=== PATIENT | female | born 1960 | race Caucasian/White ===

== ENCOUNTER 2018-01-02 10:48 | Outpatient (CLI) | payer OTHER ==
[~2018-01-02 10:48] MED LIST: CALC-787 PO; CHRO1TAB7 PO; CIME200T95; DOCU-169 PO; LYSI500T3 PO; MULT-1179 PO; NAPR220T67 PO; OLIV250C PO; POTA2TAB17 PO; RED600TA PO; SINUS PO; [UNRECOGNIZED DRUG - OTHER] PO
[2018-01-03] MEDS ORDERED: iohexol 300 MG/1 ML 10ml vial ONE (12:09)
== END 2018-01-02 23:59 | disposition home or self-care (01) ==
LOC: RAD 10:48
PROVIDERS: ATTEND Family Medicine
DX: M48.02 Spinal stenosis, cervical region (principal); M47.812 Spondylosis without myelopathy or radiculopathy, cervical region; M43.22 Fusion of spine, cervical region; F17.200 Nicotine dependence, unspecified, uncomplicated; Z90.710 Acquired absence of both cervix and uterus
CPT/HCPCS: 72141; Q9967

== ENCOUNTER 2018-04-02 08:32 | Day surgery (SDC) | payer OTHER ==
[~2018-04-02] VITALS: Ht 172.7 cm; Wt 77.3 kg
[2018-04-02 08:37] VITALS: BP 128/84
[2018-04-02] MEDS ORDERED: fentaNYL/PF 50MCG/1 ML 2ML syringe ONE (08:43)
[2018-04-02] MEDS ORDERED: MIDAZolam 5mg/5ml vial ONE (08:43)
[2018-04-02 10:20] VITALS: BP 107/69
[2018-04-02 10:30] VITALS: BP 117/77
[2018-04-02 10:40] VITALS: BP 118/61
[2018-04-02 10:50] VITALS: BP 122/76
== END 2018-04-02 10:55 | disposition home or self-care (01) ==
LOC: GI LAB 08:32
PROVIDERS: ATTEND Internal Medicine Gastroenterology
DX: Z12.11 Encounter for screening for malignant neoplasm of colon (principal); D12.5 Benign neoplasm of sigmoid colon; K58.9 Irritable bowel syndrome, unspecified; F17.210 Nicotine dependence, cigarettes, uncomplicated; Z86.010 Personal history of colon polyps; Z72.89 Other problems related to lifestyle; Z90.710 Acquired absence of both cervix and uterus; Z87.448 Personal history of other diseases of urinary system; Z87.39 Personal history of other diseases of the musculoskeletal system and connective tissue; Z88.2 Allergy status to sulfonamides; Z79.899 Other long term (current) drug therapy; Z98.890 Other specified postprocedural states; Z82.49 Family history of ischemic heart disease and other diseases of the circulatory system
CPT/HCPCS: 45380; 99152; 99153; J2250; J3010; J7030; A4620

== ENCOUNTER 2019-11-11 13:24 | Outpatient (CLI) | payer BC ==
[~2019-11-11 13:24] MED LIST changes: -CALC-787 PO; -CHRO1TAB7 PO; -DOCU-169 PO; -LYSI500T3 PO; -OLIV250C PO; -POTA2TAB17 PO; -RED600TA PO; -SINUS PO; -[UNRECOGNIZED DRUG - OTHER] PO
== END 2019-11-11 23:59 | disposition home or self-care (01) ==
LOC: RAD 13:24
PROVIDERS: ATTEND Family Medicine
DX: R91.1 Solitary pulmonary nodule (principal); R07.81 Pleurodynia; M47.814 Spondylosis without myelopathy or radiculopathy, thoracic region
CPT/HCPCS: 71101; 71250

== ENCOUNTER 2020-11-28 08:40 | Outpatient (CLI) | payer BC ==
[2020-11-28 09:36] LABS: BASOPHILS % (AUTO) 0.7 % (0-1); EOSINOPHILS # (AUTO) 0.2 X10'3 (0-0.9); EOSINOPHILS % (AUTO) 2.6 % (0-6); HEMATOCRIT 45.6 % (35.0-45.0); HEMOGLOBIN 15.1 g/dl (12.0-16.0); LYMPHOCYTES # (AUTO) 2.5 X10'3 (1.1-4.8); LYMPHOCYTES % (AUTO) 36.3 % (21-51); MEAN CORPUSCULAR HEMOGLOBIN 31.3 PG (27.0-31.0); MEAN CORPUSCULAR HGB CONC 33.2 g/dL (33.0-36.5); MEAN PLATELET VOLUME 9.5 FL (7.4-10.4); MONOCYTES # (AUTO) 0.6 X10'3 (0-0.9); MONOCYTES % (AUTO) 8.3 % (2-12); NEUTROPHILS # (AUTO) 3.6 X10'3 (1.8-7.7); NEUTROPHILS % (AUTO) 52.1 % (42-75); PLATELET COUNT 245 X10'3 (140-440); RED BLOOD COUNT 4.85 X10'6 (4.20-5.60); RED CELL DISTRIBUTION WIDTH 13.2 % (11.5-14.5); WHITE BLOOD COUNT 6.9 X10'3 (4.5-11.0)
[2020-11-28 09:53] LABS: CLARITY,URINE SLIGHTLY CLOUDY (Clear); COLOR,URINE YELLOW (Yellow); UA COLLECTION TYPE CLN CATCH MIDSTREAM
[2020-11-28 09:54] LABS: GLUCOSE, URINE NEGATIVE (Neg); KETONES,URINE NEGATIVE (Neg); LEUKOCYTE ESTERASE ,URINE NEGATIVE (Neg); NITRITES, URINE NEGATIVE (Neg); OCCULT BLOOD,URINE NEGATIVE (Neg); PROTEIN,URINE NEGATIVE (Neg); UROBILINOGEN,URINE 0.2 E.U/dL (0.2-1.0)
[2020-11-28 09:56] LABS: SQUAMOUS EPITHELIAL CELL,UR FEW /LPF (FEW)
[2020-11-28 09:57] LABS: MUCUS STRANDS MODERATE /LPF (Neg)
[2020-11-28 09:58] LABS: BACTERIA,URINE NONE SEEN /HPF (Neg); RBC,URINE 0-2 /HPF (0-2); WBC,URINE 0-4 /HPF (0-4)
[2020-11-28 10:08] LABS: ALANINE AMINOTRANSFERASE 28 U/L (12-78); ALBUMIN 3.9 G/DL (3.4-5.0); ALKALINE PHOSPHATASE 76 IU/L (46-116); ANION GAP 13 (8-16); ASPARTATE AMINO TRANSFERASE 24 U/L (10-37); BILIRUBIN,TOTAL 0.4 MG/DL (0.1-1.0); BLOOD UREA NITROGEN 12 MG/DL (7-18); BUN/CREATININE RATIO 14.3 (6.6-38.0); CALCIUM 8.8 MG/DL (8.5-10.1); CHLORIDE 102 MMOL/L (99-107); CHOL/HDL RATIO 4.2 (0.00-4.99); CHOLESTEROL 246 MG/DL (0-200); CREATININE 0.84 MG/DL (0.40-0.90); GLUCOSE 112 MG/DL (70-104); HDL CHOLESTEROL 59 MG/DL (35-60); LDL CHOLESTEROL 148 MG/DL (50-100); POTASSIUM 3.9 MMOL/L (3.5-5.1); SODIUM 139 MMOL/L (135-145); TOTAL PROTEIN 7.9 G/DL (6.4-8.2); TRIGLYCERIDES 143 MG/DL (20-135); eGFR 70 ML/MIN
== END 2020-11-28 23:59 | disposition home or self-care (01) ==
LOC: LAB 08:40
PROVIDERS: ATTEND Family Medicine
DX: Z00.01 Encounter for general adult medical examination with abnormal findings (principal)
CPT/HCPCS: 36415; 80053; 80061; 81001; 84439; 84443; 85025

== ENCOUNTER → 2021-03-14 | Outpatient (CLI) | payer BC | END | disposition home or self-care (01) | LOC: RAD 13:34 | PROVIDERS: ATTEND Anesthesiology | DX: Z01.818 Encounter for other preprocedural examination (principal); G89.4 Chronic pain syndrome | CPT/HCPCS: 72141 ==

== ENCOUNTER 2021-10-15 10:05 | Emergency (ER) | payer BC ==
[~2021-10-15] VITALS: Ht 172.7 cm; Wt 77.0 kg
[~2021-10-15 10:05] MED LIST changes: +HYDR-3972 PO; +ORPH100T2 PO
[2021-10-15 12:28] VITALS: BP 118/80
[2021-10-15] MEDS ORDERED: dexamethasone sod phosphate 10mg/ml inj IM STA (13:38)
[2021-10-15] MEDS ORDERED: orphenadrine citrate 60mg/2ml inj. IM ONE (13:40)
[2021-10-15] MEDS ORDERED: DEC4T PO (13:40)
[2021-10-15] MEDS ORDERED: ORPH100T2 PO (13:40)
== END 2021-10-15 13:51 | disposition home or self-care (01) ==
LOC: EEVIPCON 10:05 → ER 10:05
DX: M54.16 Radiculopathy, lumbar region (principal); Z88.2 Allergy status to sulfonamides; Z79.899 Other long term (current) drug therapy
CPT/HCPCS: 72148; 96372; 99284; J1100; J2360

== ENCOUNTER 2021-10-18 09:42 | Emergency (ER) | payer BC ==
[~2021-10-18] VITALS: Ht 172.7 cm; Wt 90.9 kg
[~2021-10-18 09:42] MED LIST changes: +DEC4T PO
[2021-10-18 11:03] LABS: BASOPHILS % (AUTO) 0.4 % (0-1); EOSINOPHILS % (AUTO) 0.4 % (0-6); HEMATOCRIT 45.2 % (35.0-45.0); HEMOGLOBIN 15.3 g/dl (12.0-16.0); LYMPHOCYTES # (AUTO) 1.8 X10'3 (1.1-4.8); LYMPHOCYTES % (AUTO) 16.9 % (21-51); MEAN CORPUSCULAR HGB CONC 33.9 g/dL (33.0-36.5); MEAN CORPUSCULAR VOLUME 94.5 FL (78-98); MEAN PLATELET VOLUME 8.7 FL (7.4-10.4); MONOCYTES # (AUTO) 0.6 X10'3 (0-0.9); MONOCYTES % (AUTO) 5.5 % (2-12); NEUTROPHILS # (AUTO) 8.3 X10'3 (1.8-7.7); NEUTROPHILS % (AUTO) 76.8 % (42-75); PLATELET COUNT 232 X10'3 (140-440); RED BLOOD COUNT 4.78 X10'6 (4.20-5.60); RED CELL DISTRIBUTION WIDTH 13.4 % (11.5-14.5); WHITE BLOOD COUNT 10.8 X10'3 (4.5-11.0)
[2021-10-18 11:06] LABS: CLARITY,URINE CLEAR (Clear); COLOR,URINE YELLOW (Yellow); GLUCOSE, URINE NEGATIVE (Neg); KETONES,URINE NEGATIVE (Neg); LEUKOCYTE ESTERASE ,URINE SMALL (Neg); NITRITES, URINE NEGATIVE (Neg); OCCULT BLOOD,URINE NEGATIVE (Neg); PROTEIN,URINE NEGATIVE (Neg); UROBILINOGEN,URINE 0.2 E.U/dL (0.2-1.0)
[2021-10-18 11:17] LABS: UA COLLECTION TYPE NON-SPECIFIED
[2021-10-18 11:24] LABS: ALANINE AMINOTRANSFERASE 21 U/L (12-78); ALKALINE PHOSPHATASE 60 IU/L (46-116); ANION GAP 11 (8-16); ASPARTATE AMINO TRANSFERASE 20 U/L (10-37); BILIRUBIN,TOTAL 0.3 MG/DL (0.1-1.0); BLOOD UREA NITROGEN 10 MG/DL (7-18); BUN/CREATININE RATIO 12.3 (6.6-38.0); CALCIUM 9.2 MG/DL (8.5-10.1); CHLORIDE 99 MMOL/L (99-107); CREATININE 0.81 MG/DL (0.40-0.90); GLUCOSE 118 MG/DL (70-104); SODIUM 135 MMOL/L (135-145); TOTAL PROTEIN 7.9 G/DL (6.4-8.2); eGFR 72 ML/MIN
[2021-10-18 11:34] LABS: POTASSIUM 3.9 MMOL/L (3.5-5.1)
[2021-10-18 11:52] LABS: WBC CLUMPS,URINE FEW /HPF (NEGATIVE)
[2021-10-18 11:53] LABS: BACTERIA,URINE FEW /HPF (Neg); RBC,URINE NONE SEEN /HPF (0-2); SQUAMOUS EPITHELIAL CELL,UR FEW /LPF (FEW)
[2021-10-18] MEDS ORDERED: lisinopril 10 MG tablet PO ONE (12:25)
[2021-10-18] MEDS ORDERED: LISI20TA28 PO (17:00)
[2021-10-18 17:33] VITALS: BP 126/92
== END 2021-10-18 17:35 | disposition home or self-care (01) ==
LOC: ER 09:43 → EEVIPCON 09:43 → ER 17:35
DX: I10 Essential (primary) hypertension (principal); Z88.2 Allergy status to sulfonamides
CPT/HCPCS: 36415; 71045; 80053; 81001; 85025; 87088; 93975; 99285

== ENCOUNTER 2023-06-23 05:24 | Day surgery (SDC) | payer BC ==
[2023-06-19 15:33] LABS: BASOPHILS % (AUTO) 0.6 % (0-1); EOSINOPHILS % (AUTO) 0.2 % (0-6); LYMPHOCYTES # (AUTO) 1.4 X10'3 (1.1-4.8); LYMPHOCYTES % (AUTO) 18.4 % (21-51); MEAN CORPUSCULAR HEMOGLOBIN 31.1 PG (27.0-31.0); MEAN CORPUSCULAR HGB CONC 33.9 g/dL (33.0-36.5); MEAN CORPUSCULAR VOLUME 91.6 FL (78-98); MEAN PLATELET VOLUME 9.4 FL (7.4-10.4); MONOCYTES # (AUTO) 0.5 X10'3 (0-0.9); MONOCYTES % (AUTO) 6.4 % (2-12); NEUTROPHILS # (AUTO) 5.5 X10'3 (1.8-7.7); NEUTROPHILS % (AUTO) 74.4 % (42-75); PRE OP HEMATOCRIT 44.8 % (35.0-45.0); PRE OP HEMOGLOBIN 15.2 g/dL (12.0-16.0); PRE OP PLATELET COUNT 270 X10'3 (140-440); PRE OP WHITE BLOOD COUNT 7.4 10'3 (4.8-10.8); RED BLOOD COUNT 4.89 X10'6 (4.20-5.60)
[2023-06-19 16:22] LABS: ALBUMIN 4.2 G/DL (3.4-5.0); ALBUMIN/GLOBULIN RATIO 1.1 (1.1-1.5); ALKALINE PHOSPHATASE 55 IU/L (46-116); BLOOD UREA NITROGEN 11 MG/DL (7-18); BUN/CREATININE RATIO 11.5 (10.0-20.0); CHLORIDE 99 MMOL/L (99-107); CREATININE 0.96 MG/DL (0.40-0.90); PRE OP ALT 26 U/L (30-65); PRE OP ANION GAP 12 (8-16); PRE OP AST 21 U/L (10-37); PRE OP BILIRUB, TOTAL 0.4 MG/DL (0.0-1.0); PRE OP GLUCOSE 126 MG/DL (70-104); PRE OP POTASSIUM 3.7 MMOL/L (3.4-5.1); PRE OP SODIUM 137 MMOL/L (135-145); TOTAL PROTEIN 8.2 G/DL (6.4-8.2); eGFR 59 ML/MIN
[~2023-06-23] VITALS: Ht 172.7 cm; Wt 81.5 kg
[2023-06-23] VITALS (7 sets, daily range): BP systolic 131–141; BP diastolic 70–96; PULSE 71–103; RESP 12–16; TEMP 97.4–97.5; O2SAT 96–98
[~2023-06-23 05:24] MED LIST changes: -CIME200T95; +CYCL-1 PO; -DEC4T PO; -HYDR-3972 PO; -MULT-1179 PO; -NAPR220T67 PO; -ORPH100T2 PO; +ORPH100T4 PO; +WHEA98PO
[2023-06-23] MEDS: famotidine 20mg tablet PO ONE (06:30)
[2023-06-23] MEDS: cefazolin 2gm/D5W 100mL 100 ML IV ONE (06:31)
[2023-06-23] MEDS: ringers solution, lacted 1,000 ML IV SCH (06:31)
[2023-06-23] MEDS ORDERED: BUPIVAcaine/PF 2.5mg/ml (0.25%) 10ml vial ONE (07:09)
[2023-06-23] MEDS ORDERED: fentaNYL/PF 50MCG/1 ML 2ML syringe ONE (07:47)
[2023-06-23] MEDS ORDERED: midazolam 1 mg/ML 2ml injection ONE (07:47)
[2023-06-23] MEDS ORDERED: propofol inj 20 ML IV ONE (07:50)
[2023-06-23] MEDS ORDERED: LIDOcaine 0.5% (5mg/ml) 50ml vial ONE (07:51)
[2023-06-23] MEDS ORDERED: meperidine/PF 25mg/ml syringe IV PRN ×3 (07:55)
[2023-06-23] MEDS ORDERED: morphine 2 MG/ML inj. syringe IV PRN (07:55)
[2023-06-23] MEDS ORDERED: ringers solution, lacted 1,000 ML IV SCH (07:55)
[2023-06-23] MEDS ORDERED: ondansetron/PF 4mg/2ml inj IV PRN (07:55)
[2023-06-23] MEDS ORDERED: proCHLORperazine 10 MG/2 ml inj IV PRN (07:55)
[2023-06-23] MEDS ORDERED: morphine 4 MG/ML inj SYRINge IV PRN (07:55)
[2023-06-23] MEDS: BUPIVAcaine/PF 2.5mg/ml (0.25%) 10ml vial IJ ONE (08:25)
== END 2023-06-23 09:46 | disposition home or self-care (01) ==
LOC: PAS 05:24
PROVIDERS: ATTEND Orthopaedic Surgery Hand Surgery
DX: M72.0 Palmar fascial fibromatosis [Dupuytren] (principal); M25.342 Other instability, left hand; I10 Essential (primary) hypertension; Z87.891 Personal history of nicotine dependence; Z79.899 Other long term (current) drug therapy; Z90.710 Acquired absence of both cervix and uterus; Z90.89 Acquired absence of other organs; Z98.890 Other specified postprocedural states; Z88.2 Allergy status to sulfonamides; Z82.49 Family history of ischemic heart disease and other diseases of the circulatory system; Z80.1 Family history of malignant neoplasm of trachea, bronchus and lung
CPT/HCPCS: 26121; 26437; 36415; 80053; 82948; 85025; 93005; A6222; J0690; J2250; J2704; J3010; J3490; J7030; J7120; Z7506; Z7512; A4215; A4618; A6449; A7000